=== PATIENT | female | born 2000 | race Hispanic/Latino ===

== ENCOUNTER 2024-02-14 13:27 | Emergency (ER) | payer SELFPAY ==
[~2024-02-14] VITALS: Ht 162.6 cm; Wt 61.7 kg
[2024-02-14 13:35] VITALS: TEMP 99
[2024-02-14 14:01] LABS: BASOPHILS # (AUTO) 0.1 (0.0-0.1); BASOPHILS % 0.5 % (0.0-1.0); EOSINOPHILS # (AUTO) 0.1 (0.0-0.4); EOSINOPHILS % 0.7 % (0.0-6.0); HEMATOCRIT 43.1 % (34.2-44.1); HEMOGLOBIN 13.8 g/dL (12.0-16.0); LYMPHOCYTES # (AUTO) 2.6 (1.0-3.2); LYMPHOCYTES % 19.2 % (18.0-39.1); MEAN CORPUSCULAR HEMOGLOBIN 29.4 pg (28-32); MEAN CORPUSCULAR VOLUME 91.7 fL (81-99); MONOCYTES # (AUTO) 0.8 (0.2-0.8); MONOCYTES % 6.3 % (4.4-11.3); NEUTROPHILS # (AUTO) 9.8 (2.1-6.9); PLATELET COUNT 357 x10e3/uL (140-360); RED CELL DISTRIBUTION WIDTH 11.8 % (11.7-14.4); WHITE BLOOD COUNT 13.44 x10e3/uL (4.8-10.8)
[2024-02-14 14:09] LABS: CLARITY,URINE HAZY (CLEAR); COLOR,URINE YELLOW (YELLOW); PH,URINE 8.5 (5 - 7)
[2024-02-14 14:10] LABS: GLUCOSE, URINE NEGATIVE (NEGATIVE); KETONES,URINE >=160 (NEGATIVE); LEUKOCYTE ESTERASE ,URINE SMALL (NEGATIVE); NITRITE,URINE NEGATIVE (NEGATIVE); PROTEIN,URINE DIPSTICK 1+ (NEGATIVE)
[2024-02-14 14:11] LABS: BILIRUBIN,URINE SMALL (NEGATIVE)
[2024-02-14 14:13] LABS: PREGNANCY TEST, URINE NEGATIVE (NEGATIVE)
[2024-02-14 14:20] LABS: ALBUMIN 4.4 g/dL (3.5-5.0); ALBUMIN/GLOBULIN RATIO 1.2 (0.8-2.0); ANION GAP 19.8 mmol/L (8-16); BILIRUBIN,TOTAL 0.5 mg/dL (0.2-1.2); CALCIUM 9.6 mg/dL (8.4-10.2); CREATININE, SERUM 0.83 mg/dL (0.57-1.11); TOTAL PROTEIN 8.1 g/dL (6.5-8.1)
[2024-02-14 14:23] LABS: POTASSIUM 2.8 mmol/L (3.5-5.1)
[2024-02-14] MEDS: SODIUM CHLORIDE 0.9% 1000ML 1,000 ML IV ONE (14:24)
[2024-02-14] MEDS: Morphine 2mg Syringe 2 MG/ML SYR IV ONE (14:25)
[2024-02-14] MEDS: ONDANSETRON HCL INJ 2MG/ML 2ML 2 MG/ML VIAL IV STA (14:25)
[2024-02-14] MEDS: FAMOTIDINE 20 MG/2 ML VIAL IV STA (14:25)
[2024-02-14 14:45] LABS: BACTERIA,URINE FEW /HPF; EPITHELIAL CELLS,URINE MODERATE /LPF; WBC,URINE (MAN) 21-50 /HPF (0-5)
[2024-02-14 14:46] LABS: TRANSITIONAL EPI CELLS,URINE FEW
[2024-02-14] MEDS ORDERED: SODIUM CHLORIDE 0.9% 250ML 250 ML ONE (15:00)
[2024-02-14] MEDS ORDERED: IOPAMIDOL 370 MG/ML 100 ML INFUS..BTL INJ ONE (15:04)
[2024-02-14] MEDS: POTASSIUM CHLORIDE 20 MEQ TAB CR PO STA (15:07)
[2024-02-14] MEDS: POTASSIUM CHLORIDE 20MEQ/100ML 100 ML IV ONE (15:08)
[2024-02-14 15:45] LABS: AMPHETAMINES SCREEN,URINE NEGATIVE (NEGATIVE); BENZODIAZEPINES SCREEN,URINE NEGATIVE (NEGATIVE); CANNABINOIDS SCREEN,URINE NEGATIVE (NEGATIVE); COCAINE SCREEN,URINE NEGATIVE (NEGATIVE); METHADONE SCREEN, URINE NEGATIVE (NEGATIVE); OPIATES SCREEN,URINE NEGATIVE (NEGATIVE); PHENCYCLIDINE SCREEN,URINE NEGATIVE (NEGATIVE)
[2024-02-14] MEDS: METOCLOPRAMIDE HCL 10 MG/2ML VIAL IV ONE (15:54)
[2024-02-14] MEDS: HALOPERIDOL LACTATE 5 MG/ML VIAL IV ONE (16:59)
[2024-02-14] MEDS ORDERED: ONDANSETRON ODT4 MG PO (17:44)
[2024-02-14] MEDS ORDERED: PEPCID20 MG PO (17:44)
[2024-02-14] MEDS ORDERED: DICYCLOMINE HCL20 MG PO (17:44)
[2024-02-14 18:00] VITALS: PULSE 82; RESP 16
[2024-02-14 18:09] VITALS: BP 124/74; PULSE 82; RESP 16; O2SAT 100
== END 2024-02-14 18:00 | disposition home or self-care (01) ==
LOC: ER 13:35
DX: R50.9 Fever, unspecified (principal); R11.2 Nausea with vomiting, unspecified; R10.33 Periumbilical pain; E87.6 Hypokalemia
CPT/HCPCS: 36415; 74177; 80053; 80307; 81001; 81025; 83690; 85025; 87086; 93005; 99284; J1630; J2270; J2405; J2765; J3480; J7030; J7050; Q9967